=== PATIENT | male | born 1995 | race Caucasian/White ===

== ENCOUNTER 2019-05-17 14:27 | Emergency (ER) | payer OTHER ==
[2019-05-17] MEDS ORDERED: solu-MEDROL 125 MG IV ONE (14:38)
[2019-05-17] MEDS ORDERED: BENADRYL 50 MG/ML IM ONE (14:39)
[2019-05-17 14:41] VITALS: BP 129/81; PULSE 85; O2SAT 98
[2019-05-17] MEDS ORDERED: solu-MEDROL 125 MG ONE ×2 (14:44→14:53)
[2019-05-17] MEDS ORDERED: BENADRYL 50 MG/ML ONE ×2 (14:44→14:53)
--- NOTE | 2019-05-17 14:50 | ERPHSYRPT ---
- History of Present Illness Time Seen by Provider: 05/17/19 14:48 Source: patient Exam Limitations: no limitations Patient Subjective Stated Complaint: Working in the yard and disturbed a hornets nest, pt thinks he was stung by approx 30 hornets, swelling in multiple areas of body Triage Nursing Assessment: Pt walked into the ER, vitals wnl, rates pain 5/10, no difficulties with breathing or swallowing, scattered hives from stings on back, eyes, neck Physician History: Working in the yard and disturbed a hornets nest, pt thinks he was stung by approx 30 hornets, swelling in multiple areas of body Timing/Duration: today Associated Symptoms: denies symptoms Allergies/Adverse Reactions: No Known Drug Allergies Allergy (Verified 05/17/19 14:42) Home Medications: No Reportable Medications [No Reported Medications] 05/17/19 [History] - Review of Systems Constitutional: No Fever, No Chills Eyes: No Symptoms Ears, Nose, & Throat: No Symptoms Respiratory: No Cough, No Dyspnea Cardiac: No Chest Pain, No Edema, No Syncope Abdominal/Gastrointestinal: No Abdominal Pain, No Nausea, No Vomiting, No Diarrhea Genitourinary Symptoms: No Dysuria Musculoskeletal: No Back Pain, No Neck Pain Skin: Rash Neurological: No Dizziness, No Focal Weakness, No Sensory Changes Psychological: No Symptoms Endocrine: No Symptoms All Other Systems: Reviewed and Negative - Past Medical History Pertinent Past Medical History: No - Past Surgical History Past Surgical History: Yes - Social History Smoking Status: Never smoker Exposure to second hand smoke: No Drug Use: none Patient Lives Alone: No - Nursing Vital Signs Nursing Vital Signs: Initial Vital Signs Temperature 97.6 F 05/17/19 14:33 Pulse Rate 85 05/17/19 14:33 Blood Pressure 129/81 05/17/19 14:33 O2 Sat by Pulse Oximetry 98 05/17/19 14:33 Pain Scale Pain Intensity 5 - Physical Exam General Appearance: no apparent distress, alert Eye Exam: PERRL/EOMI, eyes nml inspection Ears, Nose, Throat Exam: normal ENT inspection, TMs normal, pharynx normal, moist mucous membranes Neck Exam: normal inspection, non-tender, supple, full range of motion Respiratory Exam: normal breath sounds, lungs clear, No respiratory distress Cardiovascular Exam: regular rate/rhythm, normal heart sounds, normal peripheral pulses Gastrointestinal/Abdomen Exam: soft, normal bowel sounds, No tenderness, No mass Back Exam: normal inspection, normal range of motion, No CVA tenderness, No vertebral tenderness Extremity Exam: normal inspection, normal range of motion, pelvis stable Neurologic Exam: alert, oriented x 3, cooperative, normal mood/affect, nml cerebellar function, nml station & gait, sensation nml, No motor deficits Skin Exam: normal color, warm, dry, No rash Lymphatic Exam: No adenopathy SpO2: 98 - Course Nursing assessment & vital signs reviewed: Yes Ordered Tests: Medication Summary Discontinued Medications Generic Name Dose Route Start Last Admin Trade Name Freq PRN Reason Stop Dose Admin Diphenhydramine HCl 25 mg 05/17/19 14:39 Benadryl 50 Mg/Ml IM 05/17/19 14:40 STAT ONE Diphenhydramine HCl Confirm 05/17/19 14:44 Benadryl 50 Mg/Ml Administered 05/17/19 14:45 Dose 50 mg .ROUTE .STK-MED ONE Methylprednisolone Sodium Succinate 125 mg 05/17/19 14:38 Solu-Medrol 125 Mg IV 05/17/19 14:39 STAT ONE Methylprednisolone Sodium Succinate Confirm 05/17/19 14:44 Solu-Medrol 125 Mg Administered 05/17/19 14:45 Dose 125 mg .ROUTE .STK-MED ONE - Progress Progress: improved Counseled pt/family regarding: diagnosis, need for follow-up - Departure Departure Disposition: Home Clinical Impression: Hornet sting Qualifiers: Encounter type: initial encounter Injury intent: accidental or unintentional Qualified Code(s): T63.451A - Toxic effect of venom of hornets, accidental ( unintentional), initial encounter Condition: Stable Critical Care Time: No Referrals: OSVALDO MALDONADO MD [Primary Care Provider] - Instructions: Insect Bites and Stings (DC) Additional Instructions: ALLERGIC REACTION 1. There are several different reasons for the cause of an allergic reaction. If you are aware of a trigger, continue to avoid the problem. 2. If at any time you experience any of these signs or symptoms, you should seek medical attention immediately: A. Sudden onset of rash B. Wheezing C. Shortness of breath D. Thick tongue E. Dizziness 3. If you experience an allergic reaction and are treated in the emergency department, you should follow up with your family physician in order to determine how you will need to handle your allergy. Discharge/Care Plan DAKOTA LUNA was seen on 05/17/19 in the Emergency Room. The patient was counseled regarding Diagnosis,Lab results, Imaging studies, need for follow up and when to return to the Emergency Room. Prescriptions given: Discharge Note I have spoken with the patient and/or caregivers. I have explained the patient' s condition, diagnosis and treatment plan based on the information available to me at this time. I have answered the patient's and/or caregiver's questions and addressed any concerns. The patient and/or caregivers have as good understanding of the patient's diagnosis, condition and treatment plan as can be expected at this point. The vital signs have been stable. The patient's condition is stable and appropriate for discharge from the emergency department. The patient will pursue further outpatient evaluation with the primary care physician or other designated or consulting physician as outlined in the discharge instructions. The patient and/or caregivers are agreeable to this plan of care and follow-up instructions have been explained in detail. The patient and/or caregivers have received these instruction. The patient/and or caregivers are aware that any significant change in condition or worsening of symptoms should prompt an immediate return to this or the closest emergency department or call 911.
== END 2019-05-17 15:06 | disposition home or self-care (01) ==
LOC: ED 14:27
DX: T63.451A Toxic effect of venom of hornets, accidental (unintentional), initial encounter (principal)
CPT/HCPCS: 96372; 96374; 99284; J1200; J2930

== ENCOUNTER 2024-07-24 20:42 | Emergency (ER) | payer BC, OTHER ==
--- NOTE | 2024-07-24 20:50 | ERPHSYRPT ---
- History of Present Illness Time Seen by Provider: 07/24/24 21:21 Historian: patient Exam Limitations: no limitations Physician History: The patient, with Fvjuc-Ghifvvpvp-Xkwdq syndrome, presents with heart palpitations, chest pressure, and shortness of breath. He is accompanied by his father. Heart palpitations, chest pressure, and shortness of breath began earlier today. Palpitations described as 'heart skipping' started around 2:00 PM, lasting five minutes, subsided, and recurred around 5:00 to 5:30 PM while deer hunting, lasting another five minutes. Symptoms returned at approximately 6:30 to 6:45 PM, persisting for over an hour, prompting medical attention. Fatigue and weakness were noted, similar to pre-ablation episodes when heart rate increased to 180 bpm for about 20 minutes. He has a history of Lxvlu-Wigllqrdi-Ahpva syndrome and underwent an ablation in [address] Pranav Saini at [facility] in [place]. The procedure was successful, and he had been symptom-free until today. Heart rate was monitored using an Feeshe[employer] smartwatch, showing fluctuations from a resting rate of 90 bpm to 130 bpm during the episode. He did not manually count his heart rate. A 'deep pressure' was felt, and irregularities were observed on the smartwatch's ECG graph, influencing the decision to seek care. He is not currently on any heart rate medications post-ablation. He takes Adderall, 30 mg twice daily, which was taken this morning. Family history is significant for atrial fibrillation in his father and a pacemaker in his grandf ather. Timing/Duration: today, sudden, improved Activities at Onset: rest Quality: pressure, tightness Location: substernal Chest Pain Radiation: no radiation Severity of Pain-Max: moderate Severity of Pain-Current: none Modifying Factors: Worsens With: nothing Associated Symptoms: palpitations, shortness of breath, No nausea, No vomiting, No heartburn, No abdominal pain, No cough, No hurts to breathe, No diaphoresis, No chills, No fever, No syncope, No dizziness Prior Chest Pain/Cardiac Workup: no prior chest pain Nitro Today/Relief: no nitro taken today Aspirin Treatment Today: no aspirin today Allergies/Adverse Reactions: No Known Drug Allergies Allergy (Verified 07/24/24 20:44) Home Medications: Dextroamphetamine/Amphetamine [Adderall 10 mg Tablet] 30 mg PO BID 11/15/24 [History] - Review of Systems All Other Systems: Reviewed and Negative - Past Medical History Pertinent Past Medical History: No - Past Surgical History Past Surgical History: Yes - Social History Smoking Status: Never smoker Exposure to second hand smoke: No Drug Use: none Patient Lives Alone: No - Nursing Vital Signs Nursing Vital Signs: Initial Vital Signs Temperature 98 F 07/24/24 20:42 Pulse Rate 80 07/24/24 20:42 Respiratory Rate 18 07/24/24 20:42 Blood Pressure 150/82 07/24/24 20:42 O2 Sat by Pulse Oximetry 97 07/24/24 20:42 Pain Scale Pain Intensity 3 - Physical Exam General Appearance: no apparent distress Eye Exam: eyes nml inspection Ears, Nose, Throat Exam: normal ENT inspection Neck Exam: normal inspection, supple, full range of motion Respiratory Exam: normal breath sounds, lungs clear, airway intact, No respiratory distress Cardiovascular Exam: regular rate/rhythm, normal heart sounds, capillary refill <2 sec Gastrointestinal/Abdomen Exam: soft, No tenderness, No distention, No mass, No guarding, No rebound Neurologic Exam: alert, oriented x 3, cooperative Skin Exam: normal color, warm, dry, No rash SpO2 Interpretation: normal O2 Delivery: Room Air - Course Nursing assessment & vital signs reviewed: Yes EKG Interpreted by Me: RATE (69), Sinus Rhythm, NORMAL AXIS, NORMAL INTERVALS, NORMAL QRS, NORMAL ST-T - Radiology Exams Chest X-ray Interpretation: Reviewed by me, Teleradiologist Report, Negative Ordered Tests: Active Orders 24 hr Category Date Time Status Broadcast Technician STAT Care 07/24/24 20:51 Completed EKG-ER Only STAT Care 07/24/24 20:50 Completed CHEST 1 VIEW (PORTABLE) Stat Exams 07/24/24 20:50 Completed CBC W DIFF Stat Lab 07/24/24 21:16 Completed CMP Stat Lab 07/24/24 21:16 Completed D-DIMER QUANTITATIVE Stat Lab 07/24/24 21:16 Completed LIPASE Stat Lab 07/24/24 21:16 Completed LIPID PROFILE Stat Lab 07/24/24 21:16 Completed TROPONIN Q4H Lab 07/24/24 21:16 Completed TSH, 3RD Generation Stat Lab 07/24/24 21:16 Completed Medication Summary Discontinued Medications Generic Name Dose Route Start Last Admin Trade Name Freq PRN Reason Stop Dose Admin Aspirin 324 mg 07/24/24 20:56 07/24/24 21:08 Aspirin 81 Mg Tab.Chew PO 07/24/24 20:57 Not Given STAT ONE Nitroglycerin 0.4 mg 07/24/24 20:56 07/24/24 21:08 Nitroglycerin 0.4 Mg (Ed) 0.4 Mg Tab.Subl SL 07/24/24 20:57 Not Given STAT ONE Pantoprazole Sodium 40 mg 07/24/24 20:58 07/24/24 21:08 Pantoprazole 40 Mg Vial IV 07/24/24 20:59 Not Given STAT ONE Lab/Rad Data: Laboratory Result Diagrams 07/24/24 21:16 07/24/24 21:16 Laboratory Results 07/24/24 07/24/24 07/24/24 Range/Units 21:16 21:16 21:16 WBC (4.23-9.07) x10^3/uL RBC (4.63-6.08) x10^6/uL Hgb (13.7-17.5) g/dL Hct (40.1-51.0) % MCV (79.0-92.2) fL MCH (25.7-32.2) pg MCHC (32.3-36.5) g/dL RDW (11.6-14.4) % Plt Count (163-337) x10^3/uL MPV (9.4-12.4) fL Gran % (34.0-67.9) % Immature Gran % (Auto) (0.001-0.429) % Nucleat RBC Rel Count (0.00-0.2) % Eos # (Auto) (0.04-0.54) x10^3/uL Immature Gran # (Auto) (0.001-0.031) x10^3u/L Absolute Lymphs (auto) (1.32-3.57) x10^3/uL Absolute Monos (auto) (0.30-0.82) x10^3/uL Absolute Nucleated RBC (0.00-0.012) x10^3u/L Lymphocytes % (21.8-53.1) % Monocytes % (5.3-12.2) % Eosinophils % (0.8-7.0) % Basophils % (0.2-1.2) % Absolute Granulocytes (1.78-5.38) x10^3/uL Basophils # (0.01-0.08) x10^3/uL D-Dimer (0.0-0.50) mg/L Sodium (135-145) mmol/L Potassium (3.5-5.1) mmol/L Chloride (98-107) mmol/L Carbon Dioxide (22-30) mmol/L Anion Gap (5-15) MEQ/L BUN (9-20) mg/dL Creatinine (0.66-1.25) mg/dL Estimated GFR ML/MIN Glucose (74-106) mg/dL Hemoglobin A1c 5.04 (4.5-6.0) % Calcium (8.4-10.2) mg/dL Total Bilirubin (0.2-1.3) mg/dL AST (17-59) U/L ALT (0-50) U/L Alkaline Phosphatase (38-126) U/L Troponin I < 0.012 (0.000-0.033) ng/mL Serum Total Protein (6.3-8.2) g/dL Albumin (3.5-5.0) g/dL Triglycerides 179 H (30-150) mg/dL Cholesterol 201 H (50-200) mg/dL LDL Cholesterol 121 H (30-100) mg/dL HDL Cholesterol 51 (40-60) mg/dL Heart Disease Risk Ratio 4.0 Lipase 73 (23-300) U/L TSH 3rd Generation 1.467 (0.470-4.680) mIU/L 07/24/24 07/24/24 07/24/24 Range/Units 21:16 21:16 21:16 WBC 5.7 (4.23-9.07) x10^3/uL RBC 5.49 (4.63-6.08) x10^6/uL Hgb 15.8 (13.7-17.5) g/dL Hct 45.5 (40.1-51.0) % MCV 82.9 (79.0-92.2) fL MCH 28.8 (25.7-32.2) pg MCHC 34.7 (32.3-36.5) g/dL RDW 12.4 (11.6-14.4) % Plt Count 213 (163-337) x10^3/uL MPV 9.4 (9.4-12.4) fL Gran % 58.1 (34.0-67.9) % Immature Gran % (Auto) 0.2 (0.001-0.429) % Nucleat RBC Rel Count 0.0 (0.00-0.2) % Eos # (Auto) 0.08 (0.04-0.54) x10^3/uL Immature Gran # (Auto) 0.01 (0.001-0.031) x10^3u/L Absolute Lymphs (auto) 1.93 (1.32-3.57) x10^3/uL Absolute Monos (auto) 0.33 (0.30-0.82) x10^3/uL Absolute Nucleated RBC 0.00 (0.00-0.012) x10^3u/L Lymphocytes % 34.1 (21.8-53.1) % Monocytes % 5.8 (5.3-12.2) % Eosinophils % 1.4 (0.8-7.0) % Basophils % 0.4 (0.2-1.2) % Absolute Granulocytes 3.29 (1.78-5.38) x10^3/uL Basophils # 0.02 (0.01-0.08) x10^3/uL D-Dimer < 0.19 (0.0-0.50) mg/L Sodium 142 (135-145) mmol/L Potassium 3.9 (3.5-5.1) mmol/L Chloride 104 (98-107) mmol/L Carbon Dioxide 28 (22-30) mmol/L Anion Gap 14.2 (5-15) MEQ/L BUN 21 H (9-20) mg/dL Creatinine 1.51 H (0.66-1.25) mg/dL Estimated GFR 64.5 ML/MIN Glucose 95 (74-106) mg/dL Hemoglobin A1c (4.5-6.0) % Calcium 9.4 (8.4-10.2) mg/dL Total Bilirubin 0.50 (0.2-1.3) mg/dL AST 39 (17-59) U/L ALT 39 (0-50) U/L Alkaline Phosphatase 70 (38-126) U/L Troponin I (0.000-0.033) ng/mL Serum Total Protein 7.6 (6.3-8.2) g/dL Albumin 4.6 (3.5-5.0) g/dL Triglycerides (30-150) mg/dL Cholesterol (50-200) mg/dL LDL Cholesterol (30-100) mg/dL HDL Cholesterol (40-60) mg/dL Heart Disease Risk Ratio Lipase (23-300) U/L TSH 3rd Generation (0.470-4.680) mIU/L - Progress Progress: improved Air Movement: good Progress Note: Heart Palpitations and Chest Pressure Intermittent palpitations and chest pressure with shortness of breath and fatigue. WPW syndrome with ablation in 2021. Symptoms began at 2 PM, with heart rate spiking from 90 to 130 bpm (measured by [employer] smartwatch). Symptoms resolved by evaluation. Advised against Adderall due to potential exacerbation of WPW symptoms and risk of life-threatening arrhythmias. Emphasized need for regular cardiology follow-up. - Order EKG - Order cardiac enzymes - Advise immediate cardiology follow-up - Advise discontinuation of Adderall Inxvz-Rpnlllwiu-Tytvh (WPW) Syndrome WPW syndrome with successful ablation in 2021. No recurrence until today. Family history of cardiac issues (father's atrial fibrillation, grandfather's pacemaker). Discussed WPW risks, including potential for ventricular fibrillation. Emphasized avoiding stimulants like Adderall. - Advise discontinuation of Adderall - Recommend prompt cardiology follow-up. Labs remarkable for CHELSEA likely secondary to dehydration, recommend increased PO fluid intake. Otherwise labs unremarkable. Follow up with bodywork therapist. Blood Culture(s) Obtained: No Antibiotics given: No Counseled pt/family regarding: lab results, diagnosis, need for follow-up, rad results Medical Desision Making - Diagnostic Testing Diagnostic test were ordered, analyzed, and reviewed by me: Yes Radiological Interpretation: Interpreted by me, Reviewed by me, Teleradiologist Report - Risk of complications Low Risk: Low risk of morbidity from additional dx testing or treatment - Departure Departure Disposition: Home Clinical Impression: Acute kidney injury, WPW (Bzilm-Auzhwmigl-Whkfq syndrome), Palpitations Condition: Good Critical Care Time: No Referrals: DOCTOR,NO FAMILY [Primary Care Provider] - Follow Up with PCP/3 days Instructions: Palpitations ED
[2024-07-24 21:06] VITALS: TEMP 98
[2024-07-24] MEDS: PROTONIX 40 MG IV IV ONE (21:08)
[2024-07-24] MEDS: Nitrostat 0.4 MG (ED) SL ONE (21:08)
[2024-07-24] MEDS: BABY ASPIRIN 81 MG CHEW PO ONE (21:08)
[2024-07-24 21:18] LABS: Absolute Neutrophil Ct (ANC) 3.29 x10^3/uL (1.78-5.38); BASOPHIL % 0.4 % (0.2-1.2); Basophil (Absolute #) 0.02 x10^3/uL (0.01-0.08); Eosinophil % 1.4 % (0.8-7.0); Eosinophil (Absolute #) 0.08 x10^3/uL (0.04-0.54); Hematocrit 45.5 % (40.1-51.0); Hemoglobin 15.8 g/dL (13.7-17.5); IMMATURE GRAN # 0.01 x10^3u/L (0.001-0.031); IMMATURE GRAN % 0.2 % (0.001-0.429); Lymphocyte (Absolute #) 1.93 x10^3/uL (1.32-3.57); Lymphocytes % 34.1 % (21.8-53.1); Mean Cell Volume 82.9 fL (79.0-92.2); Mean Corpuscular Hemoglobin 28.8 pg (25.7-32.2); Mean Corpuscular Hgb Concent. 34.7 g/dL (32.3-36.5); Mean Platelet Volume 9.4 fL (9.4-12.4); Monocyte (Absolute #) 0.33 x10^3/uL (0.30-0.82); Monocytes % 5.8 % (5.3-12.2); Neutrophil % 58.1 % (34.0-67.9); Platelet Count 213 x10^3/uL (163-337); Red Blood Count 5.49 x10^6/uL (4.63-6.08); Red Cell Distribution Width 12.4 % (11.6-14.4); White Blood Count 5.7 x10^3/uL (4.23-9.07)
[2024-07-24 21:35] LABS: ALBUMIN 4.6 g/dL (3.5-5.0); ANION GAP 14.2 MEQ/L (5-15); BILIRUBIN,TOTAL 0.5 mg/dL (0.2-1.3); Calcium 9.4 mg/dL (8.4-10.2); Creatinine 1 1.51 mg/dL (0.66-1.25); EST GLOMERULAR FILTRATION RATE 64.5 ML/MIN; Potassium 3.9 mmol/L (3.5-5.1); Total Protein 7.6 g/dL (6.3-8.2)
--- NOTE | 2024-07-24 22:08 | XRAY ---
Indication: Chest pain. Comparison: None Portable apical lordotic chest demonstrates normal heart, lungs, and bony thorax.
[2024-07-24 22:13] LABS: TSH, 3RD Generation 1.467 mIU/L (0.470-4.680)
[2024-07-24 22:26] VITALS: RESP 19
[2024-07-24 23:14] VITALS: BP 127/79; PULSE 80; O2SAT 97
== END 2024-07-24 23:18 | disposition home or self-care (01) ==
LOC: ED 20:42
DX: N17.9 Acute kidney failure, unspecified (principal); I45.6 Pre-excitation syndrome; R00.2 Palpitations; R06.02 Shortness of breath; R07.89 Other chest pain; R53.83 Other fatigue
CPT/HCPCS: 36415; 71045; 80053; 80061; 83036; 83690; 83721; 84443; 84484; 85025; 85379; 93005; 93041; 99284; 99285